=== PATIENT | female | born 1990 | race African-American/Black ===

== ENCOUNTER 2017-07-16 09:19 | Emergency (ER) | payer SELFPAY ==
--- NOTE | 2017-07-16 09:25 | ED Physician Documentation ---
General Adult - HISTORIAN Historian: patient - HPI Stated Complaint: cough, congestion Chief Complaint: Cough/ Upper Respiratory Onset: days ago (2) Timing: still present Severity: mild Further Comments: yes (She states that she has had a cough, congestion and sore throat since last night. She is from [place] and she is here visiting. She denies a fever for herself. She has not tried any OTC meds.) Last known Well Date: 07/14/17 Last Known Well Time: 08:00 Last known Well Code/Unknown Code: Unknown - ROS CONST: denies: fever, sweating, recent illness EYES/ENT: sore throat, nasal drainage CVS/RESP: cough. denies: chest pain, shortness of breath GI/: denies: vomiting, nausea MS/SKIN/LYMPH: rash NEURO/PSYCH: denies: headache, dizziness - PAST HX Past History: other (Lupus ) Surgeries/Procedures: none Immunizations: UTD Allergies/Adverse Reactions: Allergies Allergy/AdvReac Type Severity Reaction Status Date / Time morphine Allergy Hives Verified 07/16/17 09:41 naproxen Allergy Rash Verified 07/16/17 09:41 tramadol Allergy Rash Verified 07/16/17 09:41 - SOCIAL HX Smoking History: non-smoker Alcohol Use: none Drug Use: none - FAMILY HX Family History: Yes - REVIEWED ASSESSMENTS Nursing Assessment Reviewed: Yes Vitals Reviewed: Yes General Adult Physical Exam - PHYSICAL EXAM GENERAL APPEARANCE: no distress EENT: eye inspection normal, ENT inspection normal, pharynx normal, TM's nml NECK: normal inspection RESPIRATORY: no resp distress, chest non-tender, breath sounds normal CVS: reg rate & rhythm, heart sounds normal, equal pulses, no murmur ABDOMEN: soft SKIN: warm/dry, normal color EXTREMITIES: non-tender, no evidence of injury, no edema NEURO: oriented X3, CN's nml as tested, motor nml, sensation nml, mood/affect nml Discharge Clincal Impression: Viral URI with cough Referrals: Primary Doctor,No [Primary Care Provider] - 2 Days Comments: 1. OTC meds for symptoms - cough, fever and aches 2. Increase fluids 3. Follow up with PCP 4. Return to ER for increased or concerning symptoms Condition: Stable Disposition: 01 HOME, SELF-CARE Decision to Admit: NO Date of Decison to Admit: 07/16/17 Decision Time: 09:48
[2017-07-16 09:45] VITALS: BP 113/66
== END 2017-07-16 09:54 | disposition home or self-care (01) ==
LOC: ED 09:19
DX: J06.9 Acute upper respiratory infection, unspecified (principal); R05 Cough
CPT/HCPCS: 99282